=== PATIENT | female | born 1990 | race American Indian/Alaskan Native ===

== ENCOUNTER 2020-09-15 09:19 | Emergency (ER) | payer SELFPAY | END 2020-09-15 09:57 | disposition left against medical advice (07) | LOC: ED 09:19 | DX: M79.671 Pain in right foot (principal); Z53.21 Procedure and treatment not carried out due to patient leaving prior to being seen by health care provider ==

== ENCOUNTER 2021-03-03 14:49 | Emergency (ER) | payer SELFPAY ==
[2021-03-03 15:12] VITALS: BP 122/80
--- NOTE | 2021-03-03 15:27 | Emergency Department Report ---
ED ENT HPI - General Chief complaint: Dental/Oral Stated complaint: TOOTH PAIN Time Seen by Provider: 03/03/21 15:12 Source: patient Mode of arrival: Ambulatory Limitations: No Limitations - History of Present Illness Initial comments: Patient is a 30-year-old female presents emergency room with complaints of left upper and left lower dental pain over the last few days. She states that she has not seen a dentist in approximately 4 years. She denies any facial swelling, difficulty swallowing, difficulty breathing, fever, vomiting. No past medical history. No allergies to medications. Last menstrual cycle 2 weeks ago. - Related Data Previous Rx's Medication Instructions Recorded Last Taken Type Amoxicillin [Trimox CAP] 500 mg PO Q8H #30 capsule 05/24/13 Unknown Rx HYDROcodone/APAP 10-325 [[place] 1 each PO Q4-6H PRN #20 tablet 05/24/13 Unknown Rx 10-325 mg TAB] Promethazine [Phenergan] 25 mg PO Q6H PRN #12 tablet 05/24/13 Unknown Rx Amoxicillin 500 mg PO BID #14 capsule 12/12/17 Unknown Rx Naproxen [Naprosyn] 500 mg PO BID #14 tablet 12/12/17 Unknown Rx traMADoL [Ultram 50 MG tab] 50 mg PO Q6HR PRN #12 tablet 12/12/17 Unknown Rx Chlorhexidine Mouthwash [Peridex] 15 ml MM BID #1 bottle 03/03/21 Unknown Rx Naproxen 375 mg PO BID PRN #14 tablet 03/03/21 Unknown Rx Penicillin Vk [Veetids TAB] 500 mg PO QID 7 Days #56 tablet 03/03/21 Unknown Rx Allergies Allergy/AdvReac Type Severity Reaction Status Date / Time No Known Allergies Allergy Verified 03/03/21 15:07 ED Dental HPI - General Chief complaint: Dental/Oral Stated complaint: TOOTH PAIN Time Seen by Provider: 03/03/21 15:12 Source: patient Mode of arrival: Ambulatory Limitations: No Limitations - Related Data Previous Rx's Medication Instructions Recorded Last Taken Type Amoxicillin [Trimox CAP] 500 mg PO Q8H #30 capsule 05/24/13 Unknown Rx HYDROcodone/APAP 10-325 [[place] 1 each PO Q4-6H PRN #20 tablet 05/24/13 Unknown Rx 10-325 mg TAB] Promethazine [Phenergan] 25 mg PO Q6H PRN #12 tablet 05/24/13 Unknown Rx Amoxicillin 500 mg PO BID #14 capsule 12/12/17 Unknown Rx Naproxen [Naprosyn] 500 mg PO BID #14 tablet 12/12/17 Unknown Rx traMADoL [Ultram 50 MG tab] 50 mg PO Q6HR PRN #12 tablet 12/12/17 Unknown Rx Chlorhexidine Mouthwash [Peridex] 15 ml MM BID #1 bottle 03/03/21 Unknown Rx Naproxen 375 mg PO BID PRN #14 tablet 03/03/21 Unknown Rx Penicillin Vk [Veetids TAB] 500 mg PO QID 7 Days #56 tablet 03/03/21 Unknown Rx Allergies Allergy/AdvReac Type Severity Reaction Status Date / Time No Known Allergies Allergy Verified 03/03/21 15:07 ED Review of Systems ROS: Stated complaint: TOOTH PAIN Other details as noted in HPI Comment: All other systems reviewed and negative ED Past Medical Hx - Past Medical History Previous Medical History?: No Hx Tuberculosis: No - Surgical History Past Surgical History?: Yes Additional Surgical History: hernia repair. Knees as an Infant - Social History Smoking Status: Current Every Day Smoker Substance Use Type: None - Medications Home Medications: Home Medications Medication Instructions Recorded Confirmed Last Taken Type Amoxicillin [Trimox CAP] 500 mg PO Q8H #30 capsule 05/24/13 Unknown Rx HYDROcodone/APAP 10-325 [[place] 1 each PO Q4-6H PRN #20 tablet 05/24/13 Unknown Rx 10-325 mg TAB] Promethazine [Phenergan] 25 mg PO Q6H PRN #12 tablet 05/24/13 Unknown Rx Amoxicillin 500 mg PO BID #14 capsule 12/12/17 Unknown Rx Naproxen [Naprosyn] 500 mg PO BID #14 tablet 12/12/17 Unknown Rx traMADoL [Ultram 50 MG tab] 50 mg PO Q6HR PRN #12 tablet 12/12/17 Unknown Rx Chlorhexidine Mouthwash [Peridex] 15 ml MM BID #1 bottle 03/03/21 Unknown Rx Naproxen 375 mg PO BID PRN #14 tablet 03/03/21 Unknown Rx Penicillin Vk [Veetids TAB] 500 mg PO QID 7 Days #56 tablet 03/03/21 Unknown Rx ED Physical Exam - General Limitations: No Limitations General appearance: alert, in no apparent distress - Head Head exam: Present: atraumatic, normocephalic - Eye Eye exam: Present: normal appearance - ENT ENT exam: Present: mucous membranes moist, other (there are dental caries present to the left upper molar and left lower molar, no facial edema, no uvular edema or deviation, no trismus, no tongue elevation, no muffled voice, no tongue elevation, no submandibular edema ) - Respiratory Respiratory exam: Absent: respiratory distress, accessory muscle use - Neurological Exam Neurological exam: Present: alert, oriented X3 - Psychiatric Psychiatric exam: Present: normal affect, normal mood - Skin Skin exam: Present: warm, dry, intact ED Course Vital Signs 03/03/21 15:10 Temperature 98.4 F Pulse Rate 69 Respiratory 20 Rate Blood Pressure 122/80 O2 Sat by Pulse 100 Oximetry ED Medical Decision Making - Medical Decision Making Patient is a 30-year-old female presents emergency room with complaints of left upper and left lower dental pain over the last few days. She states that she has not seen a dentist in approximately 4 years. She denies any facial swelling, difficulty swallowing, difficulty breathing, fever, vomiting. No past medical history. No allergies to medications. Last menstrual cycle 2 weeks ago. Vitals are normal. On exam:there are dental caries present to the left upper molar and left lower molar, no facial edema, no uvular edema or deviation, no trismus, no tongue elevation, no muffled voice, no tongue elevation, no submandibular edema. No signs of significant abscess, facial cellulitis, or Shaun's at this time. Patient given prescription for medication. Advised patient Please take medication as prescribed. May use dental putty [id number] but do not swallow. Gargle with warm salt water. Follow-up with a dentist. Return to emergency room for any new or worsening symptoms. Critical care attestation.: If time is entered above; I have spent that time in minutes in the direct care of this critically ill patient, excluding procedure time. ED Disposition Clinical Impression: Dental caries, Dentalgia, Cracked tooth Disposition: 01 HOME / SELF CARE / HOMELESS Is pt being admited?: No Does the pt Need Aspirin: No Condition: Stable Additional Instructions: Please take medication as prescribed. May use dental putty [id number] but do not swallow. Gargle with warm salt water. Follow-up with a dentist. Return to emergency room for any new or worsening symptoms. Prescriptions: Naproxen 375 mg PO BID PRN #14 tablet PRN Reason: pain Chlorhexidine Mouthwash [Peridex] 15 ml MM BID #1 bottle Penicillin Vk [Veetids TAB] 500 mg PO QID 7 Days #56 tablet Referrals: [facility] [Outside] - 2-3 Days [facility] [Outside] - 2-3 Days Time of Disposition: 15:27 Print Language: LAO
== END 2021-03-03 16:17 | disposition home or self-care (01) ==
LOC: ED 14:49
DX: K02.9 Dental caries, unspecified (principal); K03.81 Cracked tooth; Z79.899 Other long term (current) drug therapy
CPT/HCPCS: 99281